=== PATIENT | male | born 1990 | race Caucasian/White ===

== ENCOUNTER 2019-06-09 21:19 | Inpatient (IN) | payer SELFPAY ==
[~2019-06-09] VITALS: Ht 176.5 cm; Wt 79.5 kg
[2019-06-09] MEDS ORDERED: META1TAB22 PO (21:27)
[2019-06-09] MEDS ORDERED: METAXALONE 800 MG TABLET PO ONE (21:45)
[2019-06-09] MEDS ORDERED: IBUPROFEN 800 MG TAB PO ONE (21:45)
[2019-06-09] MEDS ORDERED: NICOTINE POLACRILEX 2 MG GUM PO STA (21:59)
[2019-06-09 22:08] LABS: HEMATOCRIT 43.7 % (42.0-52.0); HEMOGLOBIN 14.5 g/dl (13.5-17.5); MEAN CORPUSCULAR HEMOGLOBIN 31.8 pg (27.0-33.0); MEAN CORPUSCULAR HGB CONC 33.2 g/dl (32.0-36.5); MEAN CORPUSCULAR VOLUME 95.8 fl (80.0-96.0); PLATELET COUNT, AUTOMATED 326 10^3/uL (150-450); RED BLOOD COUNT 4.56 10^6/uL (4.30-6.10); WHITE BLOOD COUNT 7.5 10^3/uL (4.0-10.0)
[2019-06-09 22:43] LABS: ACETAMINOPHEN LEVEL < 2.0 UG/ML (10.0-30.0); ALBUMIN 4.2 GM/DL (3.2-5.2); ALT/SGPT 27 U/L (12-78); BILIRUBIN,DIRECT < 0.1 MG/DL (0.0-0.2); BILIRUBIN,TOTAL 0.3 MG/DL (0.2-1.0); BLOOD UREA NITROGEN 13 MG/DL (7-18); CALCIUM LEVEL 9.1 MG/DL (8.5-10.1); CARBON DIOXIDE LEVEL 29 MEQ/L (21-32); CHLORIDE LEVEL 108 MEQ/L (98-107); CREATININE FOR GFR 1.42 MG/DL (0.70-1.30); ETHYL ALCOHOL (ETHANOL) < 0.003 % (0.000-0.010); GLOMERULAR FILTRATION RATE > 60.0 (>60); GLUCOSE, FASTING 101 MG/DL (70-100); POTASSIUM SERUM 4.1 MEQ/L (3.5-5.1); SALICYLATE LEVEL 1.8 MG/DL (5.0-30.0); SODIUM LEVEL 144 MEQ/L (136-145); TOTAL PROTEIN 7.4 GM/DL (6.4-8.2)
[2019-06-10 00:14] LABS: AMPHETAMINES LEVEL URINE NEGATIVE (NEGATIVE); BARBITURATES URINE NEGATIVE (NEGATIVE); BENZODIAZEPINES URINE NEGATIVE (NEGATIVE); CANNABINOIDS URINE NEGATIVE (NEGATIVE); COCAINE METABOLITE URINE NEGATIVE (NEGATIVE); METHADONE URINE NEGATIVE (NEGATIVE); OPIATES URINE NEGATIVE (NEGATIVE); PHENCYCLIDINE URINE NEGATIVE (NEGATIVE)
[2019-06-10] MEDS ORDERED: IBUP1TAB7 PO (00:32)
[2019-06-10] MEDS ORDERED: META1TAB22 PO (00:32)
[2019-06-10] MEDS ORDERED: NICOTINE 21MG/24HR 1 EA TRANSDERMAL TD ONE (00:45)
[2019-06-10] MEDS ORDERED: OLANZapine ORAL DISINTEGRATING TAB 5MG PO PRN (01:30)
[2019-06-10] MEDS ORDERED: MOM 30ML SUSPENSION UDC PO PRN (01:30)
[2019-06-10] MEDS ORDERED: MAALOX 30 ML SUSP *UDC PO PRN (01:30)
[2019-06-10] MEDS ORDERED: NICOTINE 21MG/24HR 1 EA TRANSDERMAL TD PRN (01:30)
[2019-06-10 02:21] VITALS: BP 136/72
[2019-06-10] MEDS ORDERED: NICOTINE POLACRILEX 2 MG GUM PO PRN (08:45)
[2019-06-10] MEDS ORDERED: METAXALONE 800 MG TABLET PO PRN (09:00)
[2019-06-10] MEDS ORDERED: IBUPROFEN 800 MG TAB PO PRN (09:00)
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
--- NOTE | 2019-06-10 11:17 | HPE ---
DATE OF ADMISSION: 06/10/2019 CHIEF COMPLAINT: Depression. HISTORY OF PRESENT ILLNESS: 28-year-old male admitted to the inpatient mental health unit for depression. History of chronic back pain at L3 to L5, receives physical therapy as an outpatient. Left knee surgery, umbilical hernia repair. Has no new complaints. He denies any fever or chills, changes in weight, rhinorrhea, sore throat, ear pain discharge. Denies shortness of breath, chest pain, pressure or tightness, lightheadedness, dizziness, nausea, vomiting, diarrhea, abdominal pain, constipation, bright red blood per rectum, melena, black tarry stools. No history of upper or lower gastrointestinal (GI) bleed. Denies dysuria, urgency or frequency, fever, chills, or flank pain. Denies upper or lower extremity weakness. Complains of chronic back pain rating it as a 3/10 to 4/10. No radiation of the pain. Patient has some difficulty walking due to previous left knee surgery but usually manages without a cane or a walker. At this time, patient is unemployed with no housing to be arranged by social media editor. PAST MEDICAL HISTORY: Chronic back pain L3-5. Arthritis. Left knee surgery in the past. Arthroscopy. Umbilical hernia repair. ALLERGIES: No known drug allergies. HOSPITAL MEDICATIONS: - Ibuprofen 800 mg three times a day as needed for pain - Skelaxin 800 mg three times a day for muscle spasm - Nicotine gum 2 mg every 2 as needed for withdrawal - Zyprexa 10 mg every 4 for agitation - Milk of Magnesia 30 mL daily as needed for constipation - Mylanta 30 mL every 4 as needed for indigestion SOCIAL HISTORY: Patient previously worked as a contractor. Cigarettes - two packs a day since the age of 15. No alcohol use. History of recreational drug use. LABORATORY DATA: White count 7.5, hemoglobin 14, hematocrit 43, platelet count 326. Sodium 144, potassium 4.1, chloride 108, bicarbonate 29, BUN 13, creatinine 1.42, glucose 101, calcium 9.1, Total bilirubin 0.3, direct bilirubin less than 0.1, AST 13, ALT 27, alkaline phosphatase 85, total protein 7.4, albumin 4.2, TSH 2.58. ASSESSMENT/PLAN: 1. This is a 28-year-old male with history of chronic back pain, left knee surgery, umbilical hernia repair admitted to the inpatient mental health unit due to severe depression, actively having no medical issues. 2. Chronic back pain as stated on Skelaxin and Ibuprofen. 3. Acute kidney injury monitor on Ibuprofen. Encouraged to increase oral intake and outpatient followup with primary care physician. 4. Deep venous thrombosis (DVT) prophylaxis: Encourage ambulation. ARLINE
[2019-06-11] MEDS ORDERED: INFLUENZA QUADRIVALENT PF VACCINE 0.5ML SYRINGE (90686) IM ONE (09:00)
== END 2019-06-10 11:25 | disposition home or self-care (01) | DRG 755 ==
LOC: M ED 21:19 → M ED INP 06-10 01:30 → M PSY 06-10 02:28
PROVIDERS: ADMIT Psychiatry & Neurology Psychiatry; ATTEND Psychiatry & Neurology Psychiatry
DX: F43.24 Adjustment disorder with disturbance of conduct (principal); F19.10 Other psychoactive substance abuse, uncomplicated; M54.5 Low back pain; F17.210 Nicotine dependence, cigarettes, uncomplicated; Z79.899 Other long term (current) drug therapy

== ENCOUNTER 2019-06-20 12:17 | Emergency (ER) | payer MEDICAID, SELFPAY ==
[~2019-06-20] VITALS: Ht 177.8 cm; Wt 77.3 kg
[2019-06-20 12:17] VITALS: BP 133/83
[~2019-06-20 12:17] MED LIST: IBUP1TAB7 PO; META1TAB22 PO
[2019-06-20] MEDS ORDERED: AMOX500C PO (13:03)
[2019-06-20] MEDS ORDERED: AMOXICILLIN 500 MG CAP PO ONE (13:15)
== END 2019-06-20 13:14 | disposition home or self-care (01) ==
LOC: M ED 12:17
DX: H66.001 Acute suppurative otitis media without spontaneous rupture of ear drum, right ear (principal); F17.200 Nicotine dependence, unspecified, uncomplicated; Z79.899 Other long term (current) drug therapy

== ENCOUNTER 2019-06-24 13:00 | Emergency (ER) | payer MEDICAID, SELFPAY ==
[~2019-06-24] VITALS: Ht 175.3 cm; Wt 76.2 kg
[~2019-06-24 13:00] MED LIST changes: +AMOX500C PO
[2019-06-24] MEDS ORDERED: IBUP-1022 PO (14:17)
[2019-06-24] MEDS ORDERED: SKEL800T97 PO (14:17)
--- NOTE | 2019-06-24 15:08 | REP ---
Five views lumbar spine and three views thoracic spine: 06/24/2019. Indication: Thoracolumbar spine pain following injury. Comparison: None. Findings: There is no acute fracture, subluxation or dislocation. Vertebral body alignment is within anatomical limits. The visualized paraspinal soft tissues are unremarkable. Impression: No acute osseous injury of the thoracolumbar spine. Electronically Signed by Krunal Muller DO 06/24/2019 03:00 P
[2019-06-24 15:26] VITALS: BP 119/71
== END 2019-06-24 15:48 | disposition home or self-care (01) ==
LOC: M ED 13:00
DX: G89.29 Other chronic pain (principal); M54.5 Low back pain; Z79.2 Long term (current) use of antibiotics

== ENCOUNTER 2019-07-12 13:42 | Emergency (ER) | payer MEDICAID, OTHER ==
[~2019-07-12] VITALS: Ht 175.3 cm; Wt 76.9 kg
[~2019-07-12 13:42] MED LIST changes: +IBUP-1022 PO; +SKEL800T97 PO
[2019-07-12] MEDS ORDERED: CYCL10TA (13:52)
[2019-07-12] MEDS ORDERED: CYCL10TA PO (16:35)
[2019-07-12] MEDS ORDERED: IBUP-1022 PO (16:35)
[2019-07-12 16:53] VITALS: BP 130/70
== END 2019-07-12 16:53 | disposition home or self-care (01) ==
LOC: M ED 13:42
DX: Z76.0 Encounter for issue of repeat prescription (principal); G89.29 Other chronic pain; M54.9 Dorsalgia, unspecified; Z79.899 Other long term (current) drug therapy

== ENCOUNTER 2019-08-20 09:42 | Emergency (ER) | payer MEDICAID, OTHER ==
[~2019-08-20] VITALS: Ht 175.3 cm; Wt 79.2 kg
[~2019-08-20 09:42] MED LIST changes: +CYCL10TA; +CYCL10TA PO
[2019-08-20] MEDS ORDERED: AMOX500C PO (11:59)
[2019-08-20] MEDS ORDERED: IBUP-1022 PO (11:59)
[2019-08-20 12:05] VITALS: BP 121/79
== END 2019-08-20 12:05 | disposition home or self-care (01) ==
LOC: M ED 09:42
DX: H66.001 Acute suppurative otitis media without spontaneous rupture of ear drum, right ear (principal)